=== PATIENT | female | born 1990 | race Caucasian/White ===

== ENCOUNTER → 2017-11-25 02:52 | Observation (INO) ==
[2017-11-25 01:32] LABS: Bilirubin,Urine Negative (Negative); Blood,Urine Negative (Negative); Clarity,Urine Cloudy (Clear); Color,Urine Yellow (Yellow); Glucose,Urine (UA) Normal (Normal); Ketones,Urine 15 mg/dL (Negative); Leukocyte Esterase,Urine Small (Negative); Nitrite,Urine Negative (Negative); Protein,Urine Negative (Neg-Trace); Specific Gravity,Urine 1.015 (1.010-1.025); Urobilinogen,Urine Normal (Normal)
[2017-11-25 01:34] LABS: Bacteria,Urine Few per hpf (None-Few); Hyaline Casts,Urine None Seen per lpf (None-Few); RBC,Urine 0-3 per hpf (0-3); Squamous Epithelial Cell,Urine Many per lpf (None-Few)
[2017-11-25 01:37] LABS: Amphetamine Screen,Urine Negative ng/mL (Cutoff=1000); Barbiturate Screen,Urine Negative ng/mL (Cutoff=200); Benzodiazepines Screen,Urine Negative ng/mL (Cutoff=200); Cannabinoid Screen,Urine Negative ng/mL (Cutoff = 50); Cocaine Screen,Urine Negative ng/mL (Cutoff= 300); Opiate Screen,Urine Negative ng/mL (Cutoff=300); Phencyclidine Screen,Urine Negative ng/mL (Cutoff=25)
--- NOTE | 2017-11-25 02:47 | OB/GYN Progress Note ---
Date of Encounter: 11/25/17 Time of Encounter: 02:40 - Assessment and Plan (1) 33 weeks gestation of Current Visit: Yes Status: Acute (2) Vaginal discharge during in third trimester Current Visit: Yes Status: Acute SSE with thick, green, discharge in vault. Negative pooling, negative nitrazine , negative fern. Cultures collected. Will follow-up outpatient. Subjective - Subjective Interval history: 27 year-old presenting at 33w4d with c/o vaginal discharge that has caused her to change her underwear several times today. She reports some thick, green discharge and some watery discharge. She also reports an odor that smells like "semen". No bleeding or contractions. No urinary sx. No other complaints. Good FM. She receives care with the [facility]. labs include: A positive blood type, Rubella immune, syphilis negative, hep B negative, HIV negative, GC negative, Glucola 140, 3 hour GTT normal. She had a placenta previa at anatomy ultrasound but this has resolved on ultrasound at 29 weeks. Antepartum ROS: loss of fluid, movement normal, no vaginal bleeding, no contractions Objective - Vital Signs Vital Signs: Intake and Output 11/24/17 11/24/17 11/25/17 15:59 23:59 07:59 Other: Weight 95.617 kg Patient Weight 11/25/17 23:59 Weight 95.617 kg - Exam FHR: category 1 FHR comments: NST reactive Auscultation: bilateral: normal Abdomen: Present: soft, gravid. Absent: tenderness Uterus: Present: normal. Absent: tenderness Cervical dilation: closed Cervix effacement: thick - Labs Labs: Abnormal lab results Urine Clarity Cloudy (Clear) A 11/25/17 01:00 Urine Ketones 15 mg/dL (Negative) H 11/25/17 01:00 Ur Leukocyte Esterase Small (Negative) H 11/25/17 01:00 Urine Microscopic WBC 5-15 per hpf (0-3) H 11/25/17 01:00 Ur Squamous Epith Cells Many per lpf (None-Few) H 11/25/17 01:00 Ur Culture Indicated? NO. (NO) A 11/25/17 01:00
[2017-11-25 03:45] LABS: Candida DNA Not Detected (Not Detect); Gardnerella DNA DETECTED (Not Detect); Trichomonas DNA Not Detected (Not Detect)
== END | disposition home or self-care (01) ==
LOC: 1NENULAB
PROVIDERS: ADMIT Registered Nurse; ATTEND Registered Nurse